=== PATIENT | female | born 1940 | race Asian ===

== ENCOUNTER 2022-12-02 20:33 | Emergency (ER) | payer MEDICARE, BC ==
[~2022-12-02] VITALS: Ht 165.1 cm; Wt 53.5 kg
--- NOTE | 2022-12-02 21:43 | NUR ---
BIB FAMILY FOR DIZZINESS, WEAKNESS AND NAUSEA TODAY. AAOX4. PT ATTACHED TO THE MONITOR.
[2022-12-02] MEDS ORDERED: ONDANSETRON HCL/PF 4 MG/2 ML VIAL ONE (22:19)
--- NOTE | 2022-12-02 22:20 | NUR ---
PT ASSISTED TO RESTROOM. URINE COLLECTED, SENT TO LAB.
--- NOTE | 2022-12-02 22:25 | NUR ---
XR=197, NOTIFIED
[2022-12-02] MEDS ORDERED: IV NS 0.9% 1,000 ML BAG IV ONE (22:30)
[2022-12-02] MEDS ORDERED: ONDANSETRON HCL/PF - ER 4 MG/2 ML VIAL IV ONE (22:30)
--- NOTE | 2022-12-02 22:30 | NUR ---
ESTABLISHED IV LINE AT L AC, 20G. BLOOD DRAWN AND SENT TO LAB.
[2022-12-02 22:42] LABS: BILIRUBIN,URINE NEGATIVE (NEGATIVE); COLOR,URINE YELLOW (YELLOW); LEUKOCYTE ESTERASE ,URINE NEGATIVE (NEGATIVE); NITRITE, URINE NEGATIVE (NEGATIVE); PROTEIN,URINE NEGATIVE (NEGATIVE); UGLUCOSE 3+ mg/dL (NEGATIVE); UROBILINOGEN,URINE 0.2 EU/dL (0.2)
[2022-12-02 22:42] LABS: BASOPHILS # (AUTO) 0.1 K/uL (0.0-0.2); BASOPHILS % (AUTO) 0.8 % (0.0-2.0); HEMATOCRIT 43 % (33-45); LYMPHOCYTES # (AUTO) 0.8 K/uL (0.8-4.8); LYMPHOCYTES % (AUTO) 5.2 % (20.0-44.0); MEAN CORPUSCULAR HGB CONC 33 g/dl (31.0-36.0); MEAN CORPUSCULAR VOLUME 89 fL (82-100); MONOCYTES # (AUTO) 0.2 K/uL (0.1-1.30); MONOCYTES % (AUTO) 1.1 % (2.0-12.0); NEUTROPHILS # (AUTO) 14.2 K/uL (1.8-8.9); NEUTROPHILS % (AUTO) 92.9 % (43.0-81.0); PLATELET COUNT (AUTO) 157 K/uL (150-450); RED BLOOD CELL COUNT(AUTO) 4.86 MIL/uL (4.0-5.2); WHITE BLOOD COUNT (AUTO) 15.3 K/uL (4.3-11.0)
--- NOTE | 2022-12-02 22:49 | NUR ---
PT TAKEN TO CT BY [employer] VIA [facility].
--- NOTE | 2022-12-02 23:02 | NUR ---
PT RETURNED FROM CT
[2022-12-02 23:10] LABS: CALCIUM, SERUM 11.5 mg/dL (8.5-10.1); CARBON DIOXIDE 26 mmol/L (21-32); CHLORIDE 106 mmol/L (98-107); CREATININE 0.8 mg/dL (0.6-1.3); GLUCOSE 270 mg/dL (74-106); POTASSIUM 3.7 mmol/L (3.5-5.1); SODIUM SERUM 142 mmol/L (136-145); UREA NITROGEN, BLOOD 28 mg/dL (7-18)
[2022-12-02 23:15] LABS: ALANINE AMINOTRANSFERASE 26 U/L (12-78); ALBUMIN 4.2 g/dL (3.4-5.0); ALKALINE PHOSPHATASE 149 U/L (46-116); ASPARTATE AMINOTRANSFERASE 13 U/L (15-37); BILIRUBIN,DIRECT 0.2 mg/dL (0.0-0.2); BILIRUBIN,TOTAL 0.8 mg/dL (0.2-1.0); TOTAL PROTEIN, SERUM 7.9 g/dL (6.4-8.2)
[2022-12-03] MEDS ORDERED: ONDA4TAB5 PO (00:25)
--- NOTE | 2022-12-03 00:49 | NUR ---
Patient discharged to home in stable condition. Written and verbal after care instructions given to pt and pt's family. Patient verbalizes understanding of instruction.IV removed. Catheter intact and site benign. Pressure and 4x4 applied to site. No bleeding noted.
[2022-12-03 00:50] VITALS: BP 134/68; TEMP 98.1; O2SAT 99
== END 2022-12-03 00:51 | disposition home or self-care (01) ==
LOC: ER 20:38
DX: R42 Dizziness and giddiness (principal); R11.2 Nausea with vomiting, unspecified; E11.9 Type 2 diabetes mellitus without complications; Z88.0 Allergy status to penicillin
CPT/HCPCS: 99285; 96374; 70450; 71045; 96361; 93005; 85025; 80048; 80076; 81003; 36415; 84484; 82962; J2405; J7030

== ENCOUNTER 2024-02-03 18:10 | Emergency (ER) | payer BC, MEDICARE, OTHER ==
[~2024-02-03] VITALS: Ht 167.6 cm; Wt 49.9 kg
[~2024-02-03 18:10] MED LIST: ONDA4TAB5 PO
[2024-02-03] MEDS ORDERED: HYDROCODONE/APAP 5/325MG TABLET ONE (18:48)
[2024-02-03] MEDS: HYDROCODONE/APAP 5/325MG TABLET PO ONE (18:52)
[2024-02-03] MEDS ORDERED: HYDR-3980 PO (19:34)
[2024-02-03 19:55] VITALS: BP 138/77; TEMP 98.6; O2SAT 99
== END 2024-02-03 19:56 | disposition home or self-care (01) ==
LOC: ER 18:43
DX: S52.592A Other fractures of lower end of left radius, initial encounter for closed fracture (principal); S52.612A Displaced fracture of left ulna styloid process, initial encounter for closed fracture; E11.9 Type 2 diabetes mellitus without complications; M79.642 Pain in left hand; Z88.0 Allergy status to penicillin; W01.0XXA Fall on same level from slipping, tripping and stumbling without subsequent striking against object, initial encounter; Y93.89 Activity, other specified; Y92.89 Other specified places as the place of occurrence of the external cause; Y99.8 Other external cause status
CPT/HCPCS: 73110